=== PATIENT | female | born 1975 | race Caucasian/White ===

== ENCOUNTER 2016-07-30 08:00 | Outpatient (CLI) | payer BC | END 2016-07-30 08:01 | disposition home or self-care (01) | DX: Z79.01 Long term (current) use of anticoagulants (principal) ==

== ENCOUNTER 2016-08-26 08:00 | Outpatient (CLI) | payer BC | END 2016-08-26 08:01 | disposition home or self-care (01) | DX: Z79.01 Long term (current) use of anticoagulants (principal) ==

== ENCOUNTER 2016-09-10 15:25 | Outpatient (CLI) | payer BC | END 2016-09-10 15:26 | disposition home or self-care (01) | DX: Z79.01 Long term (current) use of anticoagulants (principal) ==

== ENCOUNTER 2016-10-18 15:06 | Outpatient (CLI) | payer BC | END 2016-10-18 15:07 | disposition home or self-care (01) | DX: Z79.01 Long term (current) use of anticoagulants (principal) ==

== ENCOUNTER 2016-11-08 09:01 | Outpatient (CLI) | payer BC | END 2016-11-08 09:02 | disposition home or self-care (01) | DX: Z79.01 Long term (current) use of anticoagulants (principal) ==

== ENCOUNTER 2016-11-22 09:38 | Outpatient (CLI) | payer BC | END 2016-11-22 09:39 | disposition home or self-care (01) | DX: Z79.01 Long term (current) use of anticoagulants (principal) ==

== ENCOUNTER 2016-11-28 08:00 | Outpatient (CLI) | payer BC | END 2016-11-28 23:59 | LOC: LAB.N 08:00 | PROVIDERS: ATTEND Pharmacist Pharmacotherapy | DX: Z79.01 Long term (current) use of anticoagulants (principal) | CPT/HCPCS: 85610 ==

== ENCOUNTER 2016-12-11 10:10 | Outpatient (CLI) | payer BC | END 2016-12-11 10:11 | disposition home or self-care (01) | LOC: LAB.N 10:10 | PROVIDERS: ATTEND Pharmacist Pharmacotherapy | DX: Z79.01 Long term (current) use of anticoagulants (principal) | CPT/HCPCS: 85610 ==

== ENCOUNTER 2017-01-08 10:40 | Outpatient (CLI) | payer BC | END 2017-01-08 10:41 | LOC: LAB.N 10:40 | PROVIDERS: ATTEND Pharmacist Pharmacotherapy | DX: Z79.01 Long term (current) use of anticoagulants (principal) | CPT/HCPCS: 85610 ==

== ENCOUNTER 2017-01-22 23:55 | Outpatient (CLI) | payer BC | END 2017-01-22 23:56 | disposition home or self-care (01) | LOC: LAB.N 23:55 | PROVIDERS: ATTEND Pharmacist Pharmacotherapy | DX: Z79.01 Long term (current) use of anticoagulants (principal) | CPT/HCPCS: 85610 ==

== ENCOUNTER 2017-02-11 08:00 | Outpatient (CLI) | payer BC | END 2017-02-11 08:01 | disposition home or self-care (01) | LOC: LAB.N 08:00 | PROVIDERS: ATTEND Pharmacist Pharmacotherapy | DX: Z79.01 Long term (current) use of anticoagulants (principal) | CPT/HCPCS: 85610 ==

== ENCOUNTER 2017-03-17 09:00 | Outpatient (CLI) | payer BC | END 2017-03-17 09:01 | disposition home or self-care (01) | LOC: LAB.N 09:00 | PROVIDERS: ATTEND Pharmacist Pharmacotherapy | DX: Z79.01 Long term (current) use of anticoagulants (principal) | CPT/HCPCS: 85610 ==

== ENCOUNTER 2017-03-28 08:00 | Outpatient (CLI) | payer BC ==
[2017-03-28 13:13] LABS: BASOPHILS # (AUTO) 0.1 10^3/uL (0.0-0.1); BASOPHILS % (AUTO) 0.9 %; EOSINOPHILS # (AUTO) 0.2 10^3/uL (0.0-0.7); EOSINOPHILS % (AUTO) 2.6 %; HCT - HEMATOCRIT 33.5 % (37.0-47.0); HGB - HEMOGLOBIN 11.3 g/dL (12.0-16.0); LYMPHOCYTES # (AUTO) 2.8 10^3/uL (1.5-3.5); LYMPHOCYTES % (AUTO) 37.2 %; MEAN CORPUSCULAR HEMOGLOBIN 30.5 pg (27.0-31.0); MEAN CORPUSCULAR HGB CONC 33.7 g/dL (32.0-36.0); MEAN CORPUSCULAR VOLUME 90.6 fL (81.0-99.0); MEAN PLATELET VOLUME 8.7 fL (7.9-10.8); MONOCYTES # (AUTO) 0.5 10^3/uL (0.0-1.0); MONOCYTES % (AUTO) 6.1 %; NEUTROPHILS % (AUTO) 53.2 %; RED CELL DISTRIBUTION WIDTH 13.9 % (12.0-15.0); UNCORRECTED WHITE BLOOD COUNT 7.5 x10^3/uL; WHITE BLOOD COUNT 7.5 x10^3/uL (4.8-10.8)
[2017-03-28 13:28] LABS: BILIRUBIN,TOTAL 0.4 mg/dL (0.2-1.0); BUN - BLOOD UREA NITROGEN 12 mg/dL (6-20); CALCIUM 9.2 mg/dL (8.5-10.3); CARBON DIOXIDE - CO2 24 mmol/L (21-32); CHLORIDE 102 mmol/L (101-111); CHOL/HDL RATIO 5.1 (<4.4); CHOLESTEROL 225 mg/dL; CREATININE 0.5 mg/dL (0.4-1.0); GFR - MDRD 135 (>89); GLUCOSE 93 mg/dL (70-100); HDL CHOLESTEROL 44 mg/dL; LDL/HDL RATIO 3.3 (<4.4); POTASSIUM 3.7 mmol/L (3.5-5.0); SODIUM 135 mmol/L (135-145); TOTAL PROTEIN 7.9 g/dL (6.7-8.2); TRIGLYCERIDES 170 mg/dL; VLDL CHOLESTEROL 34 mg/dL
[2017-03-28 13:37] LABS: HEMOGLOBIN A1C 0.49 g/dL
== END 2017-03-28 08:01 | disposition home or self-care (01) ==
LOC: LAB.N 08:00
PROVIDERS: ATTEND Family Medicine
DX: Z00.00 Encounter for general adult medical examination without abnormal findings (principal); F41.8 Other specified anxiety disorders; D64.9 Anemia, unspecified; G43.909 Migraine, unspecified, not intractable, without status migrainosus; R73.9 Hyperglycemia, unspecified; N32.81 Overactive bladder; N12 Tubulo-interstitial nephritis, not specified as acute or chronic; K21.9 Gastro-esophageal reflux disease without esophagitis
CPT/HCPCS: 36415; 80053; 80061; 83036; 84443; 85025

== ENCOUNTER 2017-03-31 08:00 | Outpatient (CLI) | payer BC | END 2017-03-31 08:01 | disposition home or self-care (01) | LOC: LAB.N 08:00 | PROVIDERS: ATTEND Pharmacist Pharmacotherapy | DX: Z79.01 Long term (current) use of anticoagulants (principal) | CPT/HCPCS: 85610 ==

== ENCOUNTER 2017-04-08 09:31 | Outpatient (CLI) | payer BC ==
[2017-04-08 12:45] LABS: IMMATURE RETIC FRACTION 0.45; RED BLOOD COUNT 3.92 10^6/uL (4.20-5.40)
[2017-04-08 13:15] LABS: FERRITIN 59.1 ng/mL (11.0-306.8)
[2017-04-08 14:35] LABS: IRON 51 ug/dL (28-170); TOTAL IRON BINDING CAPACITY 361 ug/dL (250-450); TRANSFERRIN 258 mg/dL (192-382)
== END 2017-04-08 09:32 | disposition home or self-care (01) ==
LOC: LAB.N 09:31
PROVIDERS: ATTEND Family Medicine
DX: D64.9 Anemia, unspecified (principal)
CPT/HCPCS: 36415; 82607; 82728; 82746; 83540; 84466; 85044

== ENCOUNTER 2017-05-06 09:30 | Outpatient (CLI) | payer BC | END 2017-05-06 09:31 | disposition home or self-care (01) | LOC: LAB.N 09:30 | PROVIDERS: ATTEND Pharmacist Pharmacotherapy | DX: Z79.01 Long term (current) use of anticoagulants (principal) | CPT/HCPCS: 85610 ==

== ENCOUNTER 2017-06-25 09:27 | Outpatient (CLI) | payer BC | END 2017-06-25 09:28 | disposition home or self-care (01) | LOC: LAB.N 09:27 | PROVIDERS: ATTEND Pharmacist Pharmacotherapy | DX: Z79.01 Long term (current) use of anticoagulants (principal) | CPT/HCPCS: 85610 ==

== ENCOUNTER 2017-07-09 08:18 | Outpatient (CLI) | payer BC ==
[2017-07-09 14:23] LABS: BASOPHILS % (AUTO) 0.6 %; EOSINOPHILS # (AUTO) 0.3 10^3/uL (0.0-0.7); EOSINOPHILS % (AUTO) 4.2 %; HCT - HEMATOCRIT 36.5 % (37.0-47.0); HGB - HEMOGLOBIN 12.4 g/dL (12.0-16.0); LYMPHOCYTES # (AUTO) 2.9 10^3/uL (1.5-3.5); LYMPHOCYTES % (AUTO) 38.8 %; MEAN CORPUSCULAR HEMOGLOBIN 30.7 pg (27.0-31.0); MEAN CORPUSCULAR HGB CONC 34.1 g/dL (32.0-36.0); MEAN CORPUSCULAR VOLUME 90.1 fL (81.0-99.0); MEAN PLATELET VOLUME 8.7 fL (7.9-10.8); MONOCYTES # (AUTO) 0.5 10^3/uL (0.0-1.0); MONOCYTES % (AUTO) 6.2 %; NEUTROPHILS # (AUTO) 3.8 10^3/uL (1.5-6.6); NEUTROPHILS % (AUTO) 50.2 %; NUCLEATED RED BLOOD CELLS AUTO 0.1 /100WBC; RED BLOOD COUNT 4.05 10^6/uL (4.20-5.40); RED CELL DISTRIBUTION WIDTH 13.4 % (12.0-15.0); UNCORRECTED WHITE BLOOD COUNT 7.6 x10^3/uL; WHITE BLOOD COUNT 7.6 x10^3/uL (4.8-10.8)
[2017-07-09 14:35] LABS: CHOLESTEROL 208 mg/dL; HDL CHOLESTEROL 52 mg/dL; HEMOGLOBIN A1C 0.52 g/dL; LDL/HDL RATIO 2.4 (<4.4); TRIGLYCERIDES 163 mg/dL; VLDL CHOLESTEROL 33 mg/dL
[2017-07-09 14:51] LABS: FERRITIN 60.6 ng/mL (11.0-306.8)
== END 2017-07-09 23:59 ==
LOC: LAB.N 08:18
PROVIDERS: ATTEND Family Medicine
DX: D64.9 Anemia, unspecified (principal); Z79.01 Long term (current) use of anticoagulants
CPT/HCPCS: 36415; 80061; 82607; 82728; 83036; 85025; 85610

== ENCOUNTER 2017-10-01 08:00 | Outpatient (CLI) | payer BC | END 2017-10-01 08:01 | LOC: LAB.N 08:00 | PROVIDERS: ATTEND Pharmacist Pharmacotherapy | DX: Z79.01 Long term (current) use of anticoagulants (principal) | CPT/HCPCS: 85610 ==

== ENCOUNTER 2017-10-15 08:00 | Outpatient (CLI) | payer BC | END 2017-10-15 08:01 | disposition home or self-care (01) | LOC: LAB.N 08:00 | PROVIDERS: ATTEND Pharmacist Pharmacotherapy | DX: Z79.01 Long term (current) use of anticoagulants (principal) | CPT/HCPCS: 85610 ==

== ENCOUNTER 2017-10-29 09:43 | Outpatient (CLI) | payer BC | END 2017-10-29 09:44 | disposition home or self-care (01) | LOC: LAB.N 09:43 | PROVIDERS: ATTEND Pharmacist Pharmacotherapy | DX: Z79.01 Long term (current) use of anticoagulants (principal) | CPT/HCPCS: 85610 ==

== ENCOUNTER 2017-11-12 08:00 | Outpatient (CLI) | payer BC | END 2017-11-12 08:01 | disposition home or self-care (01) | LOC: LAB.N 08:00 | PROVIDERS: ATTEND Pharmacist Pharmacotherapy | DX: Z79.01 Long term (current) use of anticoagulants (principal) | CPT/HCPCS: 85610 ==

== ENCOUNTER 2017-12-03 09:14 | Outpatient (CLI) | payer BC | END 2017-12-03 09:15 | LOC: LAB.N 09:14 | PROVIDERS: ATTEND Pharmacist Pharmacotherapy | DX: Z79.01 Long term (current) use of anticoagulants (principal) | CPT/HCPCS: 85610 ==

== ENCOUNTER 2017-12-24 08:00 | Outpatient (CLI) | payer BC | END 2017-12-24 08:01 | disposition home or self-care (01) | LOC: LAB.N 08:00 | PROVIDERS: ATTEND Pharmacist Pharmacotherapy | DX: Z79.01 Long term (current) use of anticoagulants (principal) | CPT/HCPCS: 85610 ==

== ENCOUNTER 2018-01-28 08:00 | Outpatient (CLI) | payer BC ==
[2018-01-28 12:41] LABS: BASOPHILS % (AUTO) 0.7 %; EOSINOPHILS # (AUTO) 0.3 10^3/uL (0.0-0.7); EOSINOPHILS % (AUTO) 3.8 %; LYMPHOCYTES # (AUTO) 3.1 10^3/uL (1.5-3.5); LYMPHOCYTES % (AUTO) 45.7 %; MEAN CORPUSCULAR HEMOGLOBIN 30.7 pg (27.0-31.0); MEAN CORPUSCULAR HGB CONC 32.8 g/dL (32.0-36.0); MEAN CORPUSCULAR VOLUME 93.4 fL (81.0-99.0); MEAN PLATELET VOLUME 8.8 fL (7.9-10.8); MONOCYTES # (AUTO) 0.4 10^3/uL (0.0-1.0); NEUTROPHILS % (AUTO) 43.8 %; PLT - PLATELET COUNT 318 10^3/uL (130-450); RED BLOOD COUNT 3.92 10^6/uL (4.20-5.40); RED CELL DISTRIBUTION WIDTH 13.8 % (12.0-15.0); WHITE BLOOD COUNT 6.9 x10^3/uL (4.8-10.8)
[2018-01-28 13:15] LABS: ALBUMIN 3.9 g/dL (3.2-5.5); ALKALINE PHOSPHATASE 89 IU/L (42-121); ALT ALANINE AMINOTRANSFERASE 14 IU/L (10-60); AST ASPARTATE AMINOTRANSFERASE 20 IU/L (10-42); BILIRUBIN,TOTAL 0.3 mg/dL (0.2-1.0); BUN - BLOOD UREA NITROGEN 12 mg/dL (6-20); CALCIUM 9.3 mg/dL (8.5-10.3); CARBON DIOXIDE - CO2 25 mmol/L (21-32); CHLORIDE 103 mmol/L (101-111); CHOL/HDL RATIO 3.9 (<4.4); CHOLESTEROL 188 mg/dL; CREATININE 0.6 mg/dL (0.4-1.0); GFR - MDRD 109 (>89); GLUCOSE 92 mg/dL (70-100); HDL CHOLESTEROL 48 mg/dL; LDL CHOLESTEROL,CALCULATED 91 mg/dL; LDL/HDL RATIO 1.9 (<4.4); SODIUM 136 mmol/L (135-145); VLDL CHOLESTEROL 49 mg/dL
[2018-01-28 13:18] LABS: HB2 TOTAL 13.4 g/dL; HEMOGLOBIN A1C 0.49 g/dL; HEMOGLOBIN A1C % 5.5 % (4.6-6.2)
== END 2018-01-28 08:01 | disposition home or self-care (01) ==
LOC: LAB.N 08:00
PROVIDERS: ATTEND Pharmacist Pharmacotherapy
DX: R73.9 Hyperglycemia, unspecified (principal); D64.9 Anemia, unspecified; Z79.01 Long term (current) use of anticoagulants
CPT/HCPCS: 36415; 80053; 80061; 83036; 83721; 85025; 85610

== ENCOUNTER 2018-02-03 10:54 | Outpatient (CLI) | payer BC | END 2018-02-03 10:55 | LOC: LAB.N 10:54 | PROVIDERS: ATTEND Pharmacist Pharmacotherapy | DX: Z79.01 Long term (current) use of anticoagulants (principal) | CPT/HCPCS: 85610 ==

== ENCOUNTER 2018-02-10 15:00 | Outpatient (CLI) | payer BC | END 2018-02-10 15:01 | disposition home or self-care (01) | LOC: LAB.N 15:00 | PROVIDERS: ATTEND Pharmacist Pharmacotherapy | DX: Z79.01 Long term (current) use of anticoagulants (principal) | CPT/HCPCS: 85610 ==

== ENCOUNTER 2018-02-24 08:00 | Outpatient (CLI) | payer BC | END 2018-02-24 08:01 | disposition home or self-care (01) | LOC: LAB.N 08:00 | PROVIDERS: ATTEND Pharmacist Pharmacotherapy | DX: Z53.9 Procedure and treatment not carried out, unspecified reason (principal) | CPT/HCPCS: 85610 ==

== ENCOUNTER 2018-02-25 14:14 | Outpatient (CLI) | payer BC | END 2018-02-25 14:15 | disposition home or self-care (01) | LOC: LAB.N 14:14 | PROVIDERS: ATTEND Pharmacist Pharmacotherapy | DX: Z79.01 Long term (current) use of anticoagulants (principal) | CPT/HCPCS: 85610 ==

== ENCOUNTER 2018-03-09 10:04 | Outpatient (CLI) | payer BC | END 2018-03-09 10:05 | disposition home or self-care (01) | LOC: LAB.N 10:04 | PROVIDERS: ATTEND Pharmacist Pharmacotherapy | DX: Z79.01 Long term (current) use of anticoagulants (principal) | CPT/HCPCS: 85610 ==

== ENCOUNTER 2018-03-25 08:00 | Outpatient (CLI) | payer BC | END 2018-03-25 08:01 | disposition home or self-care (01) | LOC: LAB.N 08:00 | PROVIDERS: ATTEND Pharmacist Pharmacotherapy | DX: Z79.01 Long term (current) use of anticoagulants (principal) | CPT/HCPCS: 85610 ==

== ENCOUNTER 2018-04-07 08:00 | Outpatient (CLI) | payer BC | END 2018-04-07 08:01 | disposition home or self-care (01) | LOC: LAB.N 08:00 | PROVIDERS: ATTEND Pharmacist Pharmacotherapy | DX: Z79.01 Long term (current) use of anticoagulants (principal) | CPT/HCPCS: 85610 ==

== ENCOUNTER 2018-04-28 08:00 | Outpatient (CLI) | payer BC | END 2018-04-28 08:01 | disposition home or self-care (01) | LOC: LAB.N 08:00 | PROVIDERS: ATTEND Pharmacist Pharmacotherapy | DX: Z79.01 Long term (current) use of anticoagulants (principal) | CPT/HCPCS: 85610 ==

== ENCOUNTER 2018-05-06 09:12 | Outpatient (CLI) | payer BC | END 2018-05-06 09:13 | disposition home or self-care (01) | LOC: LAB.N 09:12 | PROVIDERS: ATTEND Pharmacist Pharmacist Clinician (PhC)/ Clinical Pharmacy Specialist | DX: Z79.01 Long term (current) use of anticoagulants (principal) | CPT/HCPCS: 85610 ==

== ENCOUNTER → 2018-05-20 | Outpatient (CLI) | payer BC | LOC: LAB.N 09:27 | PROVIDERS: ATTEND Pharmacist Pharmacist Clinician (PhC)/ Clinical Pharmacy Specialist | DX: Z79.01 Long term (current) use of anticoagulants (principal) | CPT/HCPCS: 85610 ==

== ENCOUNTER 2018-06-02 08:00 | Outpatient (CLI) | payer BC ==
[2018-06-02 12:51] LABS: INR 1.6 (0.8-1.2); PT - PROTHROMBIN TIME 17.4 secs (9.9-12.6)
== END 2018-06-02 08:01 | disposition home or self-care (01) ==
LOC: LAB.N 08:00
PROVIDERS: ATTEND Pharmacist Pharmacist Clinician (PhC)/ Clinical Pharmacy Specialist
DX: Z79.01 Long term (current) use of anticoagulants (principal)
CPT/HCPCS: 36415; 85610

== ENCOUNTER 2018-06-08 08:00 | Outpatient (CLI) | payer BC | END 2018-06-08 08:01 | disposition home or self-care (01) | LOC: LAB.N 08:00 | PROVIDERS: ATTEND Pharmacist Pharmacist Clinician (PhC)/ Clinical Pharmacy Specialist | DX: Z79.01 Long term (current) use of anticoagulants (principal) | CPT/HCPCS: 85610 ==

== ENCOUNTER 2018-06-16 08:00 | Outpatient (CLI) | payer BC | END 2018-06-16 08:01 | disposition home or self-care (01) | LOC: LAB.N 08:00 | PROVIDERS: ATTEND Pharmacist Pharmacist Clinician (PhC)/ Clinical Pharmacy Specialist | DX: Z79.01 Long term (current) use of anticoagulants (principal) | CPT/HCPCS: 85610 ==

== ENCOUNTER 2018-06-24 09:15 | Outpatient (CLI) | payer BC | END 2018-06-24 23:59 | disposition home or self-care (01) | LOC: LAB.N 09:15 | PROVIDERS: ATTEND Pharmacist Pharmacist Clinician (PhC)/ Clinical Pharmacy Specialist | DX: Z79.01 Long term (current) use of anticoagulants (principal) | CPT/HCPCS: 85610 ==

== ENCOUNTER 2018-07-08 08:00 | Outpatient (CLI) | payer BC | END 2018-07-08 23:59 | disposition home or self-care (01) | LOC: LAB.N 08:00 | PROVIDERS: ATTEND Pharmacist Pharmacist Clinician (PhC)/ Clinical Pharmacy Specialist | DX: Z79.01 Long term (current) use of anticoagulants (principal) | CPT/HCPCS: 85610 ==

== ENCOUNTER 2018-07-24 09:26 | Outpatient (CLI) | payer BC | END 2018-07-24 23:59 | disposition home or self-care (01) | LOC: LAB.N 09:26 | PROVIDERS: ATTEND Pharmacist Pharmacist Clinician (PhC)/ Clinical Pharmacy Specialist | DX: Z79.01 Long term (current) use of anticoagulants (principal) | CPT/HCPCS: 85610 ==

== ENCOUNTER 2018-07-29 08:00 | Outpatient (CLI) | payer BC | END 2018-07-29 23:59 | disposition home or self-care (01) | LOC: LAB.N 08:00 | PROVIDERS: ATTEND Pharmacist Pharmacist Clinician (PhC)/ Clinical Pharmacy Specialist | DX: Z79.01 Long term (current) use of anticoagulants (principal) | CPT/HCPCS: 85610 ==

== ENCOUNTER 2018-08-05 08:00 | Outpatient (CLI) | payer BC | END 2018-08-05 23:59 | disposition home or self-care (01) | LOC: LAB.N 08:00 | PROVIDERS: ATTEND Pharmacist Pharmacist Clinician (PhC)/ Clinical Pharmacy Specialist | DX: Z79.01 Long term (current) use of anticoagulants (principal) | CPT/HCPCS: 85610 ==

== ENCOUNTER 2018-08-19 09:09 | Outpatient (CLI) | payer BC | END 2018-08-19 23:59 | disposition home or self-care (01) | LOC: LAB.N 09:09 | PROVIDERS: ATTEND Pharmacist Pharmacist Clinician (PhC)/ Clinical Pharmacy Specialist | DX: Z79.01 Long term (current) use of anticoagulants (principal) | CPT/HCPCS: 85610 ==

== ENCOUNTER 2018-08-28 11:41 | Outpatient (CLI) | payer BC ==
--- NOTE | 2018-08-28 13:02 | Ultrasound Report ---
Reason: LEFT CALF PAINM, ANTICOAGULATION THERAPY Procedure Date: 08/28/2018 Accession Number: [id number] / [id number] Procedure: US - Duplex Ext Veins Left CPT Code: FULL RESULT: EXAM: LEFT LOWER EXTREMITY VENOUS ULTRASOUND EXAM DATE: 08/28/2018 12:14 PM. CLINICAL HISTORY: Left calf pain. COMPARISON: None. TECHNIQUE: Real-time sonographic vascular imaging was performed by the keno terminal operator through the lower extremity utilizing both color-flow and Doppler spectral analysis. Multiple employee representative static images were saved for review. FINDINGS: Common Femoral Vein (CFV): Normal. CFV-GSV Junction: Normal. Profunda Femoral Vein (PFV): Normal. Femoral Vein (FV) Prox: Normal. Femoral Vein (FV) Mid: Normal. Femoral Vein (FV) Dist: Normal. Popliteal Vein: Normal. Posterior Tibial Veins: Normal. Peroneal Veins: Normal. Other: None. IMPRESSION: No evidence for deep venous thrombosis. RADIA
== END 2018-08-28 11:42 | disposition home or self-care (01) ==
LOC: DI 11:41
PROVIDERS: ATTEND Family Medicine
DX: M79.662 Pain in left lower leg (principal)

== ENCOUNTER 2018-08-29 14:50 | Emergency (ER) | payer BC ==
--- NOTE | 2018-08-29 15:06 | ED Physician Documentation ---
PD HPI LOWER EXT INJURY - Stated complaint Stated Complaint: CRAMP IN LEG - History obtained from History obtained from: Patient - History of Present Illness PD HPI LOW EXT INJURY LOCATION: Left (Without specific injury she has had a cramp in her left leg that is especially bad at night for the last 4 days. She is a history of open heart surgery with valve replacement and is on warfarin. She had an outpatient ultrasound yesterday ordered by her primary care physician that was negative for DVT. She is not on any diuretics and does not think there is any reason she might be dehydrated. She shows me a video last night of it when it was particularly painful which clearly shows fasciculations in the left calf.) Review of Systems Constitutional: denies: Fever, Chills Cardiac: denies: Chest pain / pressure, Palpitations Respiratory: denies: Dyspnea, Cough GI: denies: Abdominal Pain PD PAST MEDICAL HISTORY - Present Medications Home Medications: Ambulatory Orders Medication Instructions Recorded Confirmed Aspirin [Aspirin EC] 81 mg PO DAILY 08/29/18 08/29/18 Hydrocodone/Acetaminophen 1 - 2 each PO Q6H PRN #10 tablet 08/29/18 [Hydrocodon-Acetaminophen 5-325] Lamotrigine [Lamotrigine Odt] 150 mg PO DAILY 08/29/18 08/29/18 Venlafaxine HCl [Venlafaxine HCl 37.5 mg PO DAILY 08/29/18 08/29/18 ER] Warfarin Sodium 3 mg PO DAILY 08/29/18 08/29/18 - Allergies Allergies/Adverse Reactions: Allergies Allergy/AdvReac Type Severity Reaction Status Date / Time prednisone Allergy Unknown Verified 08/29/18 15:06 PD ED PE NORMAL - Vitals Vital signs reviewed: Yes - General General: Alert and oriented X 3, No acute distress - Extremities Extremities: Other (Calves are symmetric and nontender. Normal pedal pulses. Painless range of motion.) - Neuro Neuro: Alert and oriented X 3, Normal speech - Psych Psych: Normal mood, Normal affect Results - Vitals Vitals: Vital Signs - 24 hr 08/29/18 15:00 Temperature 36.4 C L Heart Rate 80 Respiratory 15 Rate Blood Pressure 141/92 H O2 Saturation 100 Oxygen O2 Source Room air - Labs Labs: Laboratory Tests 08/29/18 08/29/18 15:35 15:35 Sodium 134 L Potassium 4.0 Chloride 101 Carbon Dioxide 26 Anion Gap 7.0 BUN 9 Creatinine 0.5 Estimated GFR (MDRD) 135 Glucose 92 Calcium 9.2 9.2 Magnesium 1.9 Departure - Departure Disposition: 01 Home, Self Care Clinical Impression: Leg cramp Condition: Good Record reviewed to determine appropriate education?: Yes Instructions: ED Muscle Pain Leg Cramps Prescriptions: Hydrocodone/Acetaminophen [Hydrocodon-Acetaminophen 5-325] 1 - 2 each PO Q6H PRN #10 tablet PRN Reason: pain Comments: Call your doctor to arrange a follow-up appointment, make the next available appointment. In the interim, return anytime if worse or if new symptoms develop. Your blood pressure was elevated today on check into the emergency department. This does not mean that you have hypertension, it is a common phenomenon to come to the emergency department and have elevated blood pressure. I recommend that you see your primary care physician within the week to have it rechecked when you are feeling better.
[2018-08-29 15:55] LABS: CALCIUM 9.2 mg/dL (8.5-10.3); CREATININE 0.5 mg/dL (0.4-1.0); MAGNESIUM 1.9 mg/dL (1.7-2.8)
[2018-08-29] MEDS ORDERED: MAGNESIUM OXIDE 400 MG TABLET PO STA (16:09)
[2018-08-29 16:25] VITALS: BP 140/93
== END 2018-08-29 16:26 | disposition home or self-care (01) ==
LOC: ED 14:50
DX: R25.2 Cramp and spasm (principal); R03.0 Elevated blood-pressure reading, without diagnosis of hypertension; Z79.01 Long term (current) use of anticoagulants; Z95.2 Presence of prosthetic heart valve; Z79.82 Long term (current) use of aspirin
CPT/HCPCS: 36415; 80048; 82310; 83735; 99282; 99283; A9270

== ENCOUNTER 2018-09-09 08:00 | Outpatient (CLI) | payer BC ==
[2018-09-09 12:51] LABS: BASOPHILS # (AUTO) 0.1 10^3/uL (0.0-0.1); BASOPHILS % (AUTO) 0.9 %; EOSINOPHILS # (AUTO) 0.2 10^3/uL (0.0-0.7); EOSINOPHILS % (AUTO) 3.5 %; HGB - HEMOGLOBIN 11.5 g/dL (12.0-16.0); LYMPHOCYTES # (AUTO) 2.4 10^3/uL (1.5-3.5); LYMPHOCYTES % (AUTO) 38.3 %; MEAN CORPUSCULAR HGB CONC 34.2 g/dL (32.0-36.0); MEAN CORPUSCULAR VOLUME 90.8 fL (81.0-99.0); MONOCYTES # (AUTO) 0.5 10^3/uL (0.0-1.0); MONOCYTES % (AUTO) 7.5 %; NEUTROPHILS # (AUTO) 3.1 10^3/uL (1.5-6.6); NEUTROPHILS % (AUTO) 49.8 %; PLT - PLATELET COUNT 279 10^3/uL (130-450); RED BLOOD COUNT 3.69 10^6/uL (4.20-5.40); RED CELL DISTRIBUTION WIDTH 13.9 % (12.0-15.0); WHITE BLOOD COUNT 6.2 x10^3/uL (4.8-10.8)
[2018-09-09 13:17] LABS: ALBUMIN/GLOBULIN RATIO 1.1 (1.0-2.2); ALKALINE PHOSPHATASE 82 IU/L (42-121); ALT ALANINE AMINOTRANSFERASE 16 IU/L (10-60); AST ASPARTATE AMINOTRANSFERASE 22 IU/L (10-42); BILIRUBIN,TOTAL 0.4 mg/dL (0.2-1.0); BUN - BLOOD UREA NITROGEN 14 mg/dL (6-20); CALCIUM 9.2 mg/dL (8.5-10.3); CARBON DIOXIDE - CO2 26 mmol/L (21-32); CHLORIDE 99 mmol/L (101-111); CHOL/HDL RATIO 3.9 (<4.4); CHOLESTEROL 208 mg/dL; CREATININE 0.4 mg/dL (0.4-1.0); GFR - MDRD 174 (>89); GLUCOSE 104 mg/dL (70-100); HDL CHOLESTEROL 53 mg/dL; LDL CHOLESTEROL,CALCULATED 128 mg/dL; LDL/HDL RATIO 2.4 (<4.4); SODIUM 135 mmol/L (135-145); TOTAL PROTEIN 7.7 g/dL (6.7-8.2); VLDL CHOLESTEROL 27 mg/dL
== END 2018-09-09 23:59 | disposition home or self-care (01) ==
LOC: LAB.N 08:00
PROVIDERS: ATTEND Pharmacist Pharmacist Clinician (PhC)/ Clinical Pharmacy Specialist
DX: Z79.01 Long term (current) use of anticoagulants (principal); E78.1 Pure hyperglyceridemia
CPT/HCPCS: 36415; 80053; 80061; 83721; 84443; 85025; 85610

== ENCOUNTER 2018-09-30 08:00 | Outpatient (CLI) | payer BC | END 2018-09-30 23:59 | disposition home or self-care (01) | LOC: LAB.N 08:00 | PROVIDERS: ATTEND Pharmacist Pharmacist Clinician (PhC)/ Clinical Pharmacy Specialist | DX: Z51.81 Encounter for therapeutic drug level monitoring (principal); Z79.01 Long term (current) use of anticoagulants | CPT/HCPCS: 85610 ==

== ENCOUNTER 2018-10-27 08:00 | Outpatient (CLI) | payer BC | END 2018-10-27 23:59 | disposition home or self-care (01) | LOC: LAB.N 08:00 | PROVIDERS: ATTEND Pharmacist Pharmacist Clinician (PhC)/ Clinical Pharmacy Specialist | DX: Z79.01 Long term (current) use of anticoagulants (principal) | CPT/HCPCS: 85610 ==

== ENCOUNTER 2018-11-03 08:00 | Outpatient (CLI) | payer BC | END 2018-11-03 23:59 | disposition home or self-care (01) | LOC: LAB.N 08:00 | PROVIDERS: ATTEND Pharmacist Pharmacist Clinician (PhC)/ Clinical Pharmacy Specialist | DX: Z79.01 Long term (current) use of anticoagulants (principal) | CPT/HCPCS: 85610 ==

== ENCOUNTER 2018-11-19 09:28 | Outpatient (CLI) | payer BC | END 2018-11-19 09:29 | disposition home or self-care (01) | LOC: LAB.N 09:28 | PROVIDERS: ATTEND Pharmacist Pharmacist Clinician (PhC)/ Clinical Pharmacy Specialist | DX: Z51.81 Encounter for therapeutic drug level monitoring (principal); Z79.01 Long term (current) use of anticoagulants | CPT/HCPCS: 85610 ==

== ENCOUNTER 2018-12-17 08:00 | Outpatient (CLI) | payer BC | END 2018-12-17 23:59 | disposition home or self-care (01) | LOC: LAB.N 08:00 | PROVIDERS: ATTEND Pharmacist Pharmacist Clinician (PhC)/ Clinical Pharmacy Specialist | DX: Z79.01 Long term (current) use of anticoagulants (principal) | CPT/HCPCS: 85610 ==

== ENCOUNTER 2018-12-21 08:00 | Outpatient (CLI) | payer BC | END 2018-12-21 23:59 | disposition home or self-care (01) | LOC: LAB.N 08:00 | PROVIDERS: ATTEND Pharmacist Pharmacist Clinician (PhC)/ Clinical Pharmacy Specialist | DX: Z51.81 Encounter for therapeutic drug level monitoring (principal); Z79.01 Long term (current) use of anticoagulants | CPT/HCPCS: 85610 ==

== ENCOUNTER 2018-12-28 08:00 | Outpatient (CLI) | payer BC | END 2018-12-28 23:59 | disposition home or self-care (01) | LOC: LAB.N 08:00 | PROVIDERS: ATTEND Pharmacist Pharmacist Clinician (PhC)/ Clinical Pharmacy Specialist | DX: Z51.81 Encounter for therapeutic drug level monitoring (principal); Z79.01 Long term (current) use of anticoagulants | CPT/HCPCS: 85610 ==

== ENCOUNTER 2019-01-04 08:00 | Outpatient (CLI) | payer BC | END 2019-01-04 23:59 | disposition home or self-care (01) | LOC: LAB.N 08:00 | PROVIDERS: ATTEND Pharmacist Pharmacist Clinician (PhC)/ Clinical Pharmacy Specialist | DX: Z51.81 Encounter for therapeutic drug level monitoring (principal); Z79.01 Long term (current) use of anticoagulants | CPT/HCPCS: 85610 ==

== ENCOUNTER 2019-01-04 09:24 | Outpatient (CLI) | payer BC | END 2019-01-04 09:25 | disposition home or self-care (01) | LOC: SC 09:24 | PROVIDERS: ATTEND Internal Medicine Pulmonary Disease | DX: G47.33 Obstructive sleep apnea (adult) (pediatric) (principal); E66.9 Obesity, unspecified; Z68.34 Body mass index [BMI] 34.0-34.9, adult; Z87.891 Personal history of nicotine dependence | CPT/HCPCS: 99203; 99212 ==

== ENCOUNTER 2019-01-19 08:00 | Outpatient (CLI) | payer BC | END 2019-01-19 23:59 | disposition home or self-care (01) | LOC: LAB.N 08:00 | PROVIDERS: ATTEND Pharmacist Pharmacist Clinician (PhC)/ Clinical Pharmacy Specialist | DX: Z79.01 Long term (current) use of anticoagulants (principal) | CPT/HCPCS: 85610 ==

== ENCOUNTER 2019-01-26 08:00 | Outpatient (CLI) | payer BC | END 2019-01-26 23:59 | disposition home or self-care (01) | LOC: LAB.WCP 08:00 | PROVIDERS: ATTEND Pharmacist Pharmacist Clinician (PhC)/ Clinical Pharmacy Specialist | DX: Z79.01 Long term (current) use of anticoagulants (principal) | CPT/HCPCS: 85610 ==

== ENCOUNTER 2019-02-25 10:06 | Outpatient (CLI) | payer BC | END 2019-02-25 23:59 | disposition home or self-care (01) | LOC: LAB.N 10:06 | PROVIDERS: ATTEND Pharmacist Pharmacist Clinician (PhC)/ Clinical Pharmacy Specialist | DX: Z79.01 Long term (current) use of anticoagulants (principal) | CPT/HCPCS: 85610 ==

== ENCOUNTER 2019-03-04 14:27 | Outpatient (CLI) | payer BC | END 2019-03-04 23:59 | disposition home or self-care (01) | LOC: LAB.N 14:27 | PROVIDERS: ATTEND Pharmacist Pharmacist Clinician (PhC)/ Clinical Pharmacy Specialist | DX: Z79.01 Long term (current) use of anticoagulants (principal) | CPT/HCPCS: 85610 ==

== ENCOUNTER 2019-03-17 13:49 | Outpatient (CLI) | payer BC | END 2019-03-17 23:59 | disposition home or self-care (01) | LOC: LAB.N 13:49 | PROVIDERS: ATTEND Pharmacist Pharmacist Clinician (PhC)/ Clinical Pharmacy Specialist | DX: Z79.01 Long term (current) use of anticoagulants (principal) | CPT/HCPCS: 85610 ==

== ENCOUNTER 2019-03-30 08:00 | Outpatient (CLI) | payer BC | END 2019-03-30 23:59 | disposition home or self-care (01) | LOC: LAB.N 08:00 | PROVIDERS: ATTEND Pharmacist Pharmacist Clinician (PhC)/ Clinical Pharmacy Specialist | DX: Z79.01 Long term (current) use of anticoagulants (principal) | CPT/HCPCS: 85610 ==

== ENCOUNTER 2019-04-14 10:28 | Outpatient (CLI) | payer BC | END 2019-04-14 23:59 | disposition home or self-care (01) | LOC: LAB.N 10:28 | PROVIDERS: ATTEND Pharmacist Pharmacist Clinician (PhC)/ Clinical Pharmacy Specialist | DX: Z51.81 Encounter for therapeutic drug level monitoring (principal); Z79.01 Long term (current) use of anticoagulants | CPT/HCPCS: 85610 ==

== ENCOUNTER 2019-05-06 08:00 | Outpatient (CLI) | payer BC | END 2019-05-06 23:59 | disposition home or self-care (01) | LOC: LAB.N 08:00 | PROVIDERS: ATTEND Pharmacist | DX: Z79.01 Long term (current) use of anticoagulants (principal) | CPT/HCPCS: 85610 ==

== ENCOUNTER 2019-07-01 14:05 | Outpatient (CLI) | payer BC | END 2019-07-01 23:59 | disposition home or self-care (01) | LOC: LAB.N 14:05 | PROVIDERS: ATTEND Pharmacist | DX: Z79.01 Long term (current) use of anticoagulants (principal) | CPT/HCPCS: 85610 ==

== ENCOUNTER 2019-07-30 08:22 | Outpatient (CLI) | payer BC ==
[2019-07-30 12:38] LABS: HB2 TOTAL 11.6 g/dL; HEMOGLOBIN A1C 0.5 g/dL; HEMOGLOBIN A1C % 6.1 % (4.6-6.2)
[2019-07-30 15:03] LABS: ALBUMIN 4.1 g/dL (3.2-5.5); BILIRUBIN,TOTAL 0.6 mg/dL (0.2-1.0); CALCIUM 9.5 mg/dL (8.5-10.3); CREATININE 0.6 mg/dL (0.4-1.0); TOTAL PROTEIN 8.1 g/dL (6.7-8.2)
== END 2019-07-30 23:59 | disposition home or self-care (01) ==
LOC: LAB.N 08:22
PROVIDERS: ATTEND Pharmacist
DX: E78.1 Pure hyperglyceridemia (principal); Z79.01 Long term (current) use of anticoagulants; R73.9 Hyperglycemia, unspecified
CPT/HCPCS: 36415; 80053; 83036; 85610

== ENCOUNTER 2019-08-26 08:00 | Outpatient (CLI) | payer BC | END 2019-08-26 23:59 | disposition home or self-care (01) | LOC: LAB.N 08:00 | PROVIDERS: ATTEND Pharmacist | DX: Z79.01 Long term (current) use of anticoagulants (principal) | CPT/HCPCS: 85610 ==

== ENCOUNTER 2019-09-24 15:35 | Outpatient (CLI) | payer BC | END 2019-09-24 23:59 | disposition home or self-care (01) | LOC: LAB.N 15:35 | PROVIDERS: ATTEND Pharmacist | DX: Z79.01 Long term (current) use of anticoagulants (principal) | CPT/HCPCS: 85610 ==

== ENCOUNTER 2019-10-01 13:33 | Outpatient (CLI) | payer BC | END 2019-10-04 23:59 | disposition home or self-care (01) | LOC: LAB.N 13:33 | PROVIDERS: ATTEND Pharmacist | DX: Z79.01 Long term (current) use of anticoagulants (principal) | CPT/HCPCS: 85610 ==

== ENCOUNTER 2019-10-07 11:43 | Outpatient (CLI) | payer BC | END 2019-10-07 23:59 | disposition home or self-care (01) | LOC: LAB.N 11:43 | PROVIDERS: ATTEND Pharmacist | DX: Z79.01 Long term (current) use of anticoagulants (principal) | CPT/HCPCS: 85610 ==

== ENCOUNTER 2019-12-08 13:00 | Outpatient (CLI) | payer BC ==
[2019-12-08 17:52] LABS: INR 2.3 (0.8-1.2); PT - PROTHROMBIN TIME 24.9 secs (9.9-12.6)
== END 2019-12-08 23:59 | disposition home or self-care (01) ==
LOC: LAB.WCP 13:00
PROVIDERS: ATTEND Pharmacist
DX: Z79.01 Long term (current) use of anticoagulants (principal)
CPT/HCPCS: 36415; 85610

== ENCOUNTER 2020-01-24 13:10 | Outpatient (CLI) | payer BC ==
[2020-01-24 17:56] LABS: INR 2.1 (0.8-1.2); PT - PROTHROMBIN TIME 22.9 secs (9.9-12.6)
== END 2020-01-24 23:59 | disposition home or self-care (01) ==
LOC: LAB.WCP 13:10
PROVIDERS: ATTEND Pharmacist
DX: Z79.01 Long term (current) use of anticoagulants (principal)
CPT/HCPCS: 36415; 85610

== ENCOUNTER 2020-03-28 08:00 | Outpatient (CLI) | payer BC ==
[2020-03-28 18:24] LABS: INR 2.3 (0.8-1.2); PT - PROTHROMBIN TIME 24.6 secs (9.9-12.6)
== END 2020-03-28 23:59 | disposition home or self-care (01) ==
LOC: LAB.WCP 08:00
PROVIDERS: ATTEND Pharmacist
DX: Z79.01 Long term (current) use of anticoagulants (principal)
CPT/HCPCS: 36415; 85610

== ENCOUNTER 2020-05-09 12:00 | Outpatient (CLI) | payer BC ==
[2020-05-09 19:26] LABS: INR 1.9 (0.8-1.2); PT - PROTHROMBIN TIME 20.5 secs (9.9-12.6)
== END 2020-05-09 23:59 | disposition home or self-care (01) ==
LOC: LAB.WCP 12:00
PROVIDERS: ATTEND Pharmacist Pharmacist Clinician (PhC)/ Clinical Pharmacy Specialist
DX: Z95.2 Presence of prosthetic heart valve (principal)
CPT/HCPCS: 36415; 85610

== ENCOUNTER 2020-05-22 13:58 | Outpatient (CLI) | payer BC ==
[2020-05-22 18:04] LABS: INR 2.2 (0.8-1.2); PT - PROTHROMBIN TIME 23.2 secs (9.9-12.6)
== END 2020-05-22 13:59 | disposition home or self-care (01) ==
LOC: LAB.WCP 13:58
PROVIDERS: ATTEND Pharmacist Pharmacist Clinician (PhC)/ Clinical Pharmacy Specialist
DX: Z95.2 Presence of prosthetic heart valve (principal)
CPT/HCPCS: 36415; 85610

== ENCOUNTER 2020-06-26 08:00 | Outpatient (CLI) | payer BC ==
[2020-06-26 20:47] LABS: INR 2.1 (0.8-1.2); PT - PROTHROMBIN TIME 21.9 secs (9.9-12.6)
== END 2020-06-26 23:59 | disposition home or self-care (01) ==
LOC: LAB.WCP 08:00
PROVIDERS: ATTEND Pharmacist Pharmacist Clinician (PhC)/ Clinical Pharmacy Specialist
DX: Z95.2 Presence of prosthetic heart valve (principal)
CPT/HCPCS: 36415; 85610

== ENCOUNTER 2020-08-03 08:00 | Outpatient (CLI) | payer BC ==
[2020-08-03 12:08] LABS: INR 2.6 (0.8-1.2); PT - PROTHROMBIN TIME 27.2 secs (9.9-12.6)
== END 2020-08-03 08:01 | disposition home or self-care (01) ==
LOC: LAB.N 08:00
PROVIDERS: ATTEND Pharmacist
DX: Z95.2 Presence of prosthetic heart valve (principal)
CPT/HCPCS: 36415; 85610

== ENCOUNTER 2020-08-31 13:24 | Outpatient (CLI) | payer BC ==
--- NOTE | 2020-08-31 14:11 | SLEEP CARE CONSULTATION ---
Information from patient questionnaire entered by Lisa Mcmillan. I have reviewed and concur with the information entered by Lisa Mcmillan. This document represents the service I personally performed and the decisions made by , Dodie Paulson ARNP. History of Present Illness Service Date and Time: 08/31/2020 1324 Previous diagnosis: Mild, Obstructive Sleep Apnea-Hypopnea Syndrome AHI: 11.7 Reason for follow up: annual (Last seen 12/2018) Equipment type: CPAP Equipment obtained from: Other ([employer]) Mask style: Full face Backup mask available: Yes (old mask) Last cushion change: 1 month Year and Where: 2010 [facility] Type of Sleep Study: Polysomnography HPI additional information: YASEMIN CORONADO was diagnosed to have mild, AHI 11.7, obstructive sleep apnea- hypopnea syndrome and returned today for CPAP therapy annual follow-up. CPAP Compliance Data - Data Reviewed with Patient Average duration of nightly device use: 6 h 43 min Compliance rate %: 28.9 Current pressure setting (cmH2O): 8-12 Humidity settin Heated hose settin Average residual AHI: 10.0 Average large leak: 27 min 43 sec Subjective Missed days of use due to: reports: other (claustrophobic with mask) Patient concerns: reports: mask discomfort, mask leak noise, dry mouth, nose, throat, other (headache; having almost panic attacks and not able to wear mask). denies: aerophagia, air blowing in eyes, condensation in mask/hose, nasal congestion, epistaxis Observed to snore while using device: Yes Current pressure setting perceived as: comfortable On therapy, patient: reports: other (She has noticed a difference betw wearing mask and not ). denies: drowsiness while driving Initial [place] Sleepiness Scale score: 8 (in 2010) Current [place] Sleepiness Scale score: 5 Allergies and Home Medications Drug allergies reviewed: Yes (Prednisone) Home medication list reviewed: Yes (no changes) Review of Systems Review of systems same as previous: No (Rhinoscopy on 09-07-20) Physical Exam Heart Rate: 47 O2 Saturation: 91 Height: 5 ft 9 in Weight: 235 lb Body Mass Index: 34.7 BMI Classification: Obese Impression and Plan 1. Obstructive Sleep Apnea-Hypopnea Syndrome, mild, with poor treatment compliance and fair apnea control with elevated residual AHI. On CPAP therapy, the patient has been having more issues with claustrophobia in the mask and almost panic attacks. She is not feeling that she is getting better sleep or feeling more rested with or without use of the CPAP. She has had some oral dryness and has tried to adjust the humidity on her machine. She would like to try an oral appliance for apnea control, since she is having less tolerance of the CPAP mask. I reviewed her last study and since she is mild RICKY with least events on her left side she could try positional therapy or an oral appliance. Patient was informed that some insurances will not pay for the oral appliance and that she should check with the on coverage. Patient was given a prescription for an oral appliance and a list of certified dentists in the area so she may explore this option. She would like to continue using the CPAP machine until she is able to ascertain if she can get an oral device. I advised her to try to increase her compliance. She is having more snoring and her AHI is elevated but she would like to stay at current pressure setting until she knows if we will be stopping the CPAP therapy. Patient goals for apnea control discussed. She was also informed that she would have to complete a followup study with the oral device in place to make sure it is effective. She voiced understanding and agreement with plan. I will have her follow up in 3 months to see where she is at and to check compliance with the CPAP therapy. Patient's apnea severity and rationale for treatment to reduce apnea, improve sleep quality and reduce cardiovascular and cerebrovascular events was reviewed. I also reviewed the benefit of consistent device use of CPAP for depression/anxiety. * Continue auto CPAP pressure at 8-12 cmH2O * Explore option of oral appliance, prescription given with list of certified dentists * Notify me if snoring with mask or feeling that the pressure is too much or too little * Attempt to lose weight * Call this office if any problems using CPAP * Return for follow up in 3 months, or sooner if concerns arise Counseling Topics: Weight loss health impact Visit Type: In Office Time Spent with Patient (minutes): 29 Provider Statement: I spent 100% of the Face to Face Visit with the patient with greater than 50% spent counseling the patient and coordination of care.
== END 2020-08-31 13:25 | disposition home or self-care (01) ==
LOC: SC 13:24
PROVIDERS: ATTEND Nurse Practitioner Family
DX: G47.33 Obstructive sleep apnea (adult) (pediatric) (principal); E66.9 Obesity, unspecified; Z68.34 Body mass index [BMI] 34.0-34.9, adult
CPT/HCPCS: 99212; 99213

== ENCOUNTER 2020-09-15 08:00 | Outpatient (CLI) | payer BC | END 2020-09-15 23:59 | disposition home or self-care (01) | LOC: LAB.N 08:00 | PROVIDERS: ATTEND Pharmacist | DX: Z95.2 Presence of prosthetic heart valve (principal) | CPT/HCPCS: 36415; 85610 ==

== ENCOUNTER 2020-10-05 08:00 | Outpatient (CLI) | payer BC | END 2020-10-05 23:59 | disposition home or self-care (01) | LOC: LAB.N 08:00 | PROVIDERS: ATTEND Pharmacist Pharmacist Clinician (PhC)/ Clinical Pharmacy Specialist | DX: Z95.2 Presence of prosthetic heart valve (principal) | CPT/HCPCS: 85610 ==

== ENCOUNTER 2020-11-08 07:34 | Outpatient (CLI) | payer BC | END 2020-11-08 07:35 | disposition home or self-care (01) | LOC: LAB.N 07:34 | PROVIDERS: ATTEND Pharmacist | DX: Z95.2 Presence of prosthetic heart valve (principal) | CPT/HCPCS: 85610 ==

== ENCOUNTER 2020-11-21 08:15 | Outpatient (CLI) | payer BC ==
[2020-11-21 12:40] LABS: ALBUMIN 3.8 g/dL (3.2-5.5); ALKALINE PHOSPHATASE 85 IU/L (42-121); ALT ALANINE AMINOTRANSFERASE 13 IU/L (10-60); AST ASPARTATE AMINOTRANSFERASE 19 IU/L (10-42); BILIRUBIN,TOTAL 0.5 mg/dL (0.2-1.0); BUN - BLOOD UREA NITROGEN 15 mg/dL (6-20); CALCIUM 9.3 mg/dL (8.5-10.3); CARBON DIOXIDE - CO2 24 mmol/L (21-32); CHLORIDE 104 mmol/L (101-111); CHOL/HDL RATIO 3.7 (<4.4); CHOLESTEROL 221 mg/dL; CREATININE 0.6 mg/dL (0.4-1.0); GFR - MDRD 108 (>89); GLUCOSE 93 mg/dL (70-100); HDL CHOLESTEROL 59 mg/dL; LDL CHOLESTEROL,CALCULATED 128 mg/dL; LDL/HDL RATIO 2.2 (<4.4); POTASSIUM 3.9 mmol/L (3.5-5.0); SODIUM 138 mmol/L (135-145); TOTAL PROTEIN 7.6 g/dL (6.7-8.2); TRIGLYCERIDES 171 mg/dL; VLDL CHOLESTEROL 34 mg/dL
== END 2020-11-21 08:16 | disposition home or self-care (01) ==
LOC: LAB.N 08:15
PROVIDERS: ATTEND Family Medicine
DX: E78.1 Pure hyperglyceridemia (principal); Z95.2 Presence of prosthetic heart valve
CPT/HCPCS: 36415; 80053; 80061; 83721; 85610

== ENCOUNTER 2020-12-01 08:48 | Outpatient (CLI) | payer BC ==
--- NOTE | 2020-12-01 09:14 | SLEEP CARE CONSULTATION ---
Information from patient questionnaire entered by Christa Cramer. I have reviewed and concur with the information entered by Christa Cramer. This document represents the service I personally performed and the decisions made by , Dodie Paulson ARNP. History of Present Illness Service Date and Time: 12/01/2020 0848 Previous diagnosis: Mild, Obstructive Sleep Apnea-Hypopnea Syndrome AHI: 11.7 (in 2010) Reason for follow up: three month Equipment type: CPAP Equipment obtained from: Other ([employer]; getting supplies as needed) Mask style: Nasal Mask brand: Respironics (Dreamwear) Backup mask available: Yes (old mask) Last cushion change: 2-3 weeks ago Prior sleep studies: Yes Year and Where: 2010 [facility] Type of Sleep Study: Polysomnography HPI additional information: YASEMIN CORONADO was diagnosed to have mild, AHI 11.7, obstructive sleep apnea- hypopnea syndrome and returned today for CPAP therapy three month follow-up. CPAP Compliance Data - Data Reviewed with Patient Average duration of nightly device use: 7 hr 15 min Compliance rate %: 78 (50 days)(45.6 for 90 days) Current pressure setting (cmH2O): 8-12 Humidity settin Heated hose settin Average residual AHI: 4.5 Average large leak: 4 sec Subjective Missed days of use due to: reports: travel Patient concerns: reports: mask leak noise (top of headgear), dry mouth, nose, throat. denies: aerophagia, mask discomfort, air blowing in eyes, condensation in mask/hose, nasal congestion, epistaxis, other Observed to snore while using device: No Current pressure setting perceived as: comfortable On therapy, patient: reports: sleeping better, awakening more refreshed, being more awake and alert during the day, more rested overall. denies: drowsiness while driving Initial [place] Sleepiness Scale score: 8 (in 2010) Current [place] Sleepiness Scale score: 5 Allergies and Home Medications Home medication list reviewed: Yes (no new meds) Review of Systems Review of systems same as previous: Yes (no changes) Physical Exam Heart Rate: 82 O2 Saturation: 99 Height: 5 ft 9 in Weight: 232 lb Body Mass Index: 34.2 BMI Classification: Obese Impression and Plan 1. Obstructive Sleep Apnea-Hypopnea Syndrome, mild, with good treatment compliance and good apnea control. On CPAP therapy, the patient has better sleep quality and is more rested overall. Patient investigated changing to a oral appliance but her insurance does not cover oral device. She cannot afford to pay out of pocket. She switched to a nasal cushion Respironics Dreamwear mask and found she does not feel as uncomfortable/claustrophobic. She has been able to tolerate the CPAP mask better and her compliance has improved. She would like to continue the CPAP therapy. She does get some occasional mouth dryness. Oral dryness can be reduced by adjusting humidity setting higher or heated hose lower or by adjusting both settings. Patient advised that chronic oral dryness can affect dental health. She voiced understanding and agreement with plan of care. Patient's apnea severity and rationale for treatment to reduce apnea, improve sleep quality and reduce cardiovascular and cerebrovascular events was reviewed. I also reviewed the benefit of consistent device use of CPAP for depression/anxiety. * Continue auto CPAP pressure at 8-12 cmH2O * Notify me if snoring with mask or feeling that the pressure is too much or too little * Attempt to lose weight * Call this office if any problems using CPAP * Return for follow up in 1 year, or sooner if concerns arise Counseling Topics: Spare mask, Weight loss health impact Visit Type: In Office Time Spent with Patient (minutes): 15 Provider Statement: I spent 100% of the Face to Face Visit with the patient with greater than 50% spent counseling the patient and coordination of care.
== END 2020-12-01 08:49 | disposition home or self-care (01) ==
LOC: SC 08:48
PROVIDERS: ATTEND Nurse Practitioner Family
DX: G47.33 Obstructive sleep apnea (adult) (pediatric) (principal); E66.9 Obesity, unspecified; Z68.34 Body mass index [BMI] 34.0-34.9, adult
CPT/HCPCS: 99212

== ENCOUNTER 2020-12-22 08:57 | Outpatient (CLI) | payer BC | END 2020-12-22 08:58 | disposition home or self-care (01) | LOC: LAB.N 08:57 | PROVIDERS: ATTEND Pharmacist Pharmacist Clinician (PhC)/ Clinical Pharmacy Specialist | DX: Z95.2 Presence of prosthetic heart valve (principal) | CPT/HCPCS: 36416; 85610 ==

== ENCOUNTER 2021-01-18 08:00 | Outpatient (CLI) | payer BC | END 2021-01-18 23:59 | disposition home or self-care (01) | LOC: LAB.N 08:00 | PROVIDERS: ATTEND Pharmacist Pharmacist Clinician (PhC)/ Clinical Pharmacy Specialist | DX: Z95.2 Presence of prosthetic heart valve (principal) | CPT/HCPCS: 36416; 85610 ==

== ENCOUNTER 2021-02-12 11:19 | Outpatient (CLI) | payer BC | END 2021-02-12 11:20 | disposition home or self-care (01) | LOC: LAB.N 11:19 | PROVIDERS: ATTEND Pharmacist Pharmacist Clinician (PhC)/ Clinical Pharmacy Specialist | DX: Z95.2 Presence of prosthetic heart valve (principal) | CPT/HCPCS: 36416; 85610 ==